=== PATIENT | female | born 1940 | race Two or more races ===

== ENCOUNTER 2022-05-22 06:07 | Inpatient (IN) | payer OTHER ==
[~2022-05-22] VITALS: Ht 152.4 cm; Wt 40.4 kg
[2022-05-22] MEDS ORDERED: SYNTHROID137 MCG PO (06:14)
--- NOTE | 2022-05-22 06:15 | NUR ---
SE RECIBE PTE ALERTA Y ORIENTADA X3, EN AMBULANCIA [place] DE FAMILIAR. PTE REFIERE JUAN SUFRIDO CAIDA A LAS 3:00AM CUANDO SE DISPONIA A IR AL ROXY Y TIENE DOLOR EN VEDANA LONGDA. SE KAR S/V Y SE UBICA PTE EN CAMA 7 PARA EVALUACION MEDICA.
--- NOTE | 2022-05-22 06:19 | NUR ---
PTE FEMENINA ALERTA Y ORIENTADA X3 ES EVALUADA POR . SE ORIENTA SOBRE ORDENES DE TX REFIERE COMPRENDER. SE ADMINISTRA MEDICAMENTO, BAJO MEDIDAS ASEPTICAS. SE NOTIFICA A RADIOLOGIA PARA XRAY.
--- NOTE | 2022-05-22 07:44 | NUR ---
SE RECIBE PTE ALERTA Y ORIENTADA X3, [place] POR FAMILIAR. PTE TIENE VARGAS PATENTE #16, 05/22/22, CON EGRESO URINARIO 700ML. PENDIENTE A REEVALUACION Y RESULTADO DE RAYOSX. VITA EN EL NIVEL MAS BAJO, CON BARANDAS ELEVADAS POR PRECACUION.SE MANTIENE BAJO OBSERVACION.
--- NOTE | 2022-05-22 09:06 | NUR ---
MR CARMONA (TECNICO DE ORTOPEDIA) COLOCA TRACCION DE 5 LB EN PIERNA LT VILMA ORDEN MEDICA, PTE TOLERA PROCEDIMIENTO.
--- NOTE | 2022-05-22 13:27 | NUR ---
CT NOTIFICADO A PERSONAL DE TURNO MS JENNIE.
--- NOTE | 2022-05-22 15:27 | NUR ---
SE RECIBE A PACIENTE ALERTA Y ORIENTADO X3 EN VITA Y BARANDAS ELEVADAS. PACIENTE CON TRACCION DE 5 LBS. PACIENTE CON VARGAS DRENANDO AL MOMENTOS 600 ML DE ORINA COLOR AMARILLO INTENSO. PACIENTE EN ESPERA A CONSULTA CON DR. BAUTISTA. SE MANTIENE EN OBSERVACION POR CAMBIOS.
== END 2022-05-26 20:09 | DRG 481 ==
LOC: ER 06:07 → SURH 21:48
PROVIDERS: Orthopaedic Surgery; ADMIT Internal Medicine; ATTEND Internal Medicine
PROC: BR2CZZZ Computerized Tomography (CT Scan) of Pelvis (ICD-10-PCS; 2022-05-22)
PROC: 0QS735Z Reposition Left Upper Femur with External Fixation Device, Percutaneous Approach (ICD-10-PCS; principal; 2022-05-24 07:00)
DX: S72.142A Displaced intertrochanteric fracture of left femur, initial encounter for closed fracture (principal); D62 Acute posthemorrhagic anemia; E03.9 Hypothyroidism, unspecified; Z20.822 Contact with and (suspected) exposure to COVID-19

== ENCOUNTER 2022-06-13 09:22 | Outpatient (CLI) | payer OTHER ==
[~2022-06-13 09:22] MED LIST: SYNTHROID137 MCG PO
== END 2022-06-13 10:00 | disposition home or self-care (01) ==
LOC: RAD 09:22
PROVIDERS: ATTEND Orthopaedic Surgery
DX: M25.572 Pain in left ankle and joints of left foot (principal); M79.672 Pain in left foot; S72.22XD Displaced subtrochanteric fracture of left femur, subsequent encounter for closed fracture with routine healing

== ENCOUNTER 2022-06-22 10:46 | Outpatient (CLI) | payer OTHER | END 2022-06-22 10:47 | disposition home or self-care (01) | LOC: NUCLEAR 10:46 | PROVIDERS: ATTEND Orthopaedic Surgery | DX: I87.2 Venous insufficiency (chronic) (peripheral) (principal); Z91.013 Allergy to seafood ==

== ENCOUNTER 2022-06-29 08:16 | Outpatient (CLI) | payer OTHER | END 2022-06-29 15:28 | disposition home or self-care (01) | LOC: LAB 08:16 | PROVIDERS: ATTEND Orthopaedic Surgery | DX: E55.9 Vitamin D deficiency, unspecified (principal); M85.9 Disorder of bone density and structure, unspecified; E56.1 Deficiency of vitamin K; E21.3 Hyperparathyroidism, unspecified; E88.9 Metabolic disorder, unspecified; M81.8 Other osteoporosis without current pathological fracture ==

== ENCOUNTER 2022-09-07 10:14 | Outpatient (CLI) | payer OTHER | END 2022-09-07 10:36 | disposition home or self-care (01) | LOC: RAD 10:14 | PROVIDERS: ATTEND Orthopaedic Surgery | DX: S72.22XD Displaced subtrochanteric fracture of left femur, subsequent encounter for closed fracture with routine healing (principal) ==

== ENCOUNTER 2024-01-29 07:39 | Outpatient (CLI) | payer OTHER | END 2024-01-29 08:00 | disposition home or self-care (01) | LOC: RAD 07:39 | PROVIDERS: ATTEND Specialist | DX: J44.9 Chronic obstructive pulmonary disease, unspecified (principal); M25.552 Pain in left hip ==

== ENCOUNTER 2024-01-29 12:44 | Outpatient (CLI) | payer OTHER | END 2024-01-29 12:46 | disposition home or self-care (01) | LOC: NUCLEAR 12:44 | PROVIDERS: ATTEND Orthopaedic Surgery | DX: M81.0 Age-related osteoporosis without current pathological fracture (principal) ==

== ENCOUNTER 2024-05-09 09:02 | Outpatient (CLI) | payer OTHER | END 2024-05-09 15:26 | disposition home or self-care (01) | LOC: RAD 09:02 | PROVIDERS: ATTEND Orthopaedic Surgery | DX: J44.1 Chronic obstructive pulmonary disease with (acute) exacerbation (principal); T84.84XD Pain due to internal orthopedic prosthetic devices, implants and grafts, subsequent encounter; S72.22XD Displaced subtrochanteric fracture of left femur, subsequent encounter for closed fracture with routine healing ==

== ENCOUNTER 2024-05-27 07:31 | Outpatient (CLI) | payer OTHER ==
[2024-05-27 08:24] LABS: HEMATOCRIT 32.7 % (36.0-45.00); HEMOGLOBIN 10.4 g/dL (12.0-15.00); MEAN CELL VOLUME 70.4 fL (80.00-100.00); MEAN CORPUSCULAR HEMOGLOBIN 22.4 pg (27.00-32.0); MEAN CORPUSCULAR HGB CONC 31.8 g/dl (32.0-36.0); PLATELET COUNT 323 K/uL (150-450); RED BLOOD COUNT 4.65 M/uL (4.00-6.00)
[2024-05-27 08:27] LABS: RED CELL DISTRIBUTION WIDTH 20.2 % (11.5-14.5)
[2024-05-27 08:35] LABS: PH,URINE 6.5 (5.0-8.0); URINE APPEARANCE Cloudy; URINE BILIRRUBIN Negative (NEGATIVE); URINE BLOOD Negative; URINE COLOR Yellow; URINE GLUCOSE Negative (NEGATIVE); URINE KETONE Negative (NEGATIVE); URINE LEUKOCYTE Negative; URINE NITRATE Negative; URINE PROTEIN Negative (NEGATIVE); URINE UROBILINOGEN 0.2 E.U./dl
[2024-05-27 08:38] LABS: URINE BACTERIA 52.9 uL (0.0-1933); URINE EPITHELIAL CELLS 5.2 uL (0.0-38.8); URINE RBC 3.9 uL (0.0-20.8); URINE WBC 2.6 uL (0.0-23.2)
[2024-05-27 08:44] LABS: COL EPI 99 SECONDS (82-175)
[2024-05-27 08:47] LABS: URINE CAST 0.15 uL (0.0-1.40)
[2024-05-27 09:04] LABS: PARTIAL THROMBOPLASTIN TIME 27.5 SECONDS (22.0-34.0); PROTHROMBIN TIME 10.5 SECONDS (9.0-11.5)
[2024-05-27 09:19] LABS: ALBUMIN 3.9 gm/dL (3.4-5.0); BILIRUBIN TOTAL 0.4 mg/dL (0.3-1.2); CALCIUM 9.5 mg/dL (8.5-10.1); CREATININE SERUM 0.66 mg/dL (0.55-1.02); GFR 85.12; POTASSIUM 4.48 mEq/L (3.5-5.1); TOTAL PROTEIN 6.9 gm/dL (6.4-8.2)
[2024-06-06] MEDS ORDERED: XARELTO2.5 MG PO (12:13)
[2024-06-06] MEDS ORDERED: COZAAR50 MG PO (12:14)
== END 2024-05-27 07:32 | disposition home or self-care (01) ==
LOC: RAD 07:31
PROVIDERS: ATTEND Orthopaedic Surgery
DX: D64.9 Anemia, unspecified (principal); E88.89 Other specified metabolic disorders; D68.8 Other specified coagulation defects; N39.0 Urinary tract infection, site not specified; Z22.322 Carrier or suspected carrier of Methicillin resistant Staphylococcus aureus; E11.9 Type 2 diabetes mellitus without complications; I10 Essential (primary) hypertension; Z76.89 Persons encountering health services in other specified circumstances

== ENCOUNTER 2024-06-10 05:44 | Day surgery (SDC) | payer OTHER ==
[~2024-06-10 05:44] MED LIST changes: +COZAAR50 MG PO; +XARELTO2.5 MG PO
[2024-06-10] MEDS ORDERED: BUPIVACAINE HCL/MPF 0.5% 30ML VIAL ONE (07:13)
[2024-06-10] MEDS ORDERED: CEFTRIAXONE SODIUM 2,000 MG VIAL ONE (07:13)
[2024-06-10] MEDS ORDERED: CEFTRIAXONE SODIUM 2,000 MG VIAL IV ONE (09:15)
[2024-06-10] MEDS ORDERED: BUPIVACAINE HCL 30 ML VIAL IJ ONE (09:15)
== END 2024-06-10 13:30 | disposition home or self-care (01) ==
LOC: CIR.AMB 05:44
PROVIDERS: ATTEND Orthopaedic Surgery
DX: T84.84XD Pain due to internal orthopedic prosthetic devices, implants and grafts, subsequent encounter (principal); M70.62 Trochanteric bursitis, left hip; M89.9 Disorder of bone, unspecified; I49.9 Cardiac arrhythmia, unspecified; J44.9 Chronic obstructive pulmonary disease, unspecified; I10 Essential (primary) hypertension; E03.9 Hypothyroidism, unspecified; Z91.013 Allergy to seafood

== ENCOUNTER → 2024-09-12 09:29 | Outpatient (CLI) | payer OTHER | END | disposition home or self-care (01) | LOC: RAD 09:29 | PROVIDERS: ATTEND Orthopaedic Surgery | DX: S72.22XD Displaced subtrochanteric fracture of left femur, subsequent encounter for closed fracture with routine healing (principal); T84.84XD Pain due to internal orthopedic prosthetic devices, implants and grafts, subsequent encounter ==